=== PATIENT | female | born 2000 | race American Indian/Alaskan Native ===

== ENCOUNTER 2022-04-13 16:36 | Emergency (ER) | payer SELFPAY ==
[2022-04-13 16:57] VITALS: BP 126/40
--- NOTE | 2022-04-13 17:02 | Event Note ---
ED Screening Note ED Screening Note: co cp sob heavy menses- no hx of same This initial assessment/diagnostic orders/clinical plan/treatment(s) is/are subject to change based on patients health status, clinical progression and re- assessment by fellow clinical providers in the ED. Further treatment and workup at subsequent clinical providers discretion. Patient/guardian urged not to elope from the ED as their condition may be serious if not clinically assessed and managed. Initial orders include: labs ekg ua
[2022-04-13 17:39] LABS: Hematocrit 33.8 % (30.3-42.9); Hemoglobin 10.7 gm/dl (10.1-14.3); Mean Corpuscular HGB Conc 32 % (30-34); Mean Corpuscular Volume 72 fl (79-97); Platelet Count 317 K/mm3 (140-440); Red Blood Count 4.68 M/mm3 (3.65-5.03); Red Cell Distribution Width 19.7 % (13.2-15.2)
[2022-04-13 18:00] LABS: Alanine Aminotransferase 11 units/L (7-56); Albumin 3.9 g/dL (3.9-5); Blood Urea Nitrogen 9 mg/dL (7-17); Calcium 9.6 mg/dL (8.4-10.2); Hemolysis Index 20
[2022-04-13 18:03] LABS: BUN/Creatinine Ratio 13
--- NOTE | 2022-04-15 19:33 | Electrocardiograph Report ---
[facility] Test Date: 2022-04-13 Test Time: 16:59:47 Pat Name: DAVID ASCENCIO Department: Room: Gender: F Financial Compliance Manager: ER : 2000 Requested By: RYAN TATE Order Number: [id number] Reading MD: Annie Barrera Measurements Intervals Harvey Rate: 82 P: 62 RI: 166 QRS: 42 QRSD: 82 T: -1 QT: 390 QTc: 455 Interpretive Statements Sinus rhythm Low voltage, precordial leads No previous ECG available for comparison Electronically Signed On 04-15-2022 19:32:47 EDT by Annie Barrera
== END 2022-04-13 19:40 ==
LOC: ED 16:36
DX: R07.9 Chest pain, unspecified (principal); Z53.21 Procedure and treatment not carried out due to patient leaving prior to being seen by health care provider
CPT/HCPCS: 36415; 80053; 84484; 85027; 93005